=== PATIENT | male | born 1975 | race Caucasian/White ===

== ENCOUNTER 2021-12-11 21:43 | Emergency (ER) | payer BC ==
[2021-12-11 21:58] VITALS: BP 143/98; PULSE 69; RESP 18; TEMP 97.9; BMI 25.8
[2021-12-11] MEDS ORDERED: predniSONE 20 MG TABLET (UD) PO ONE (22:04)
[2021-12-11] MEDS ORDERED: ALBUTEROL SO4 2.5/IPRATROPIUM 0.5 INH SOL 3 ML VIAL.NEB. NEB ONE (22:06)
[2021-12-11] MEDS ORDERED: predniSONE 20 MG TABLET (UD) ONE (22:06)
[2021-12-11] MEDS ORDERED: ALBUTEROL SO4 2.5/IPRATROPIUM 0.5 INH SOL 3 ML VIAL.NEB. NEB SCH (22:15)
== END 2021-12-11 23:19 | disposition home or self-care (01) ==
LOC: FER 21:43
PROC: 3E0F7GC Introduction of Other Therapeutic Substance into Respiratory Tract, Via Natural or Artificial Opening (ICD-10-PCS; principal; 2021-12-11)
DX: J45.21 Mild intermittent asthma with (acute) exacerbation (principal)
CPT/HCPCS: 0241U-QW; 71045-TC-FY; 99284-25

== ENCOUNTER 2023-08-20 13:56 | Emergency (ER) | payer BC ==
[2023-08-20] MEDS: SODIUM CHLORIDE 1,000 ML IV STA (14:00)
[2023-08-20] MEDS ORDERED: EPINEPHrine/PF 1 MG/1 ML (1:1,000) AMPULE ONE (14:01)
[2023-08-20] MEDS ORDERED: methylPREDNISolone NA SUCC 125 MG/2 ML VIAL ONE ×2 (14:01→14:07)
[2023-08-20] MEDS ORDERED: FAMOTIDINE 20 MG/50 ML IVPB 20 MG/50 ML MG IVPB ONE (14:01)
[2023-08-20] MEDS: EPINEPHrine 1:1,000 0.3 MG/0.3 ML SYR IM ONE (14:03)
[2023-08-20] MEDS: FAMOTIDINE 20 MG/50 ML IVPB 20 MG/50 ML MG IVPB ONE (14:10)
[2023-08-20] MEDS: methylPREDNISolone NA SUCC 125 MG/2 ML VIAL IVPB ONE (14:15)
[2023-08-20 14:26] VITALS: TEMP 97.4; BMI 27.3
[2023-08-20 15:10] VITALS: PULSE 80
[2023-08-20 17:00] VITALS: BP 120/80; RESP 16
== END 2023-08-20 17:54 | disposition home or self-care (01) ==
LOC: SUPCPDRO 13:56 → FER 13:56
PROC: 3E033GC Introduction of Other Therapeutic Substance into Peripheral Vein, Percutaneous Approach (ICD-10-PCS; principal; 2023-08-20)
PROC: 3E033GC Introduction of Other Therapeutic Substance into Peripheral Vein, Percutaneous Approach (ICD-10-PCS; 2023-08-20)
PROC: 3E02305 Introduction of Other Antineoplastic into Muscle, Percutaneous Approach (ICD-10-PCS; 2023-08-20)
DX: R06.02 Shortness of breath (principal); R11.0 Nausea; R06.7 Sneezing; T78.1XXA Other adverse food reactions, not elsewhere classified, initial encounter
CPT/HCPCS: 99284-25; J0171